=== PATIENT | male | born 1975 | race Caucasian/White ===

== ENCOUNTER 2020-02-17 01:13 | Emergency (ER) | payer OTHER ==
[~2020-02-17] VITALS: Ht 188 cm; Wt 136.1 kg
[~2020-02-17 01:13] MED LIST: ACET325 PO; ADVIL 200 MG; ALBU90OI61; ALPR1 PO; ANTIVIRAL; BENA20 PO; CEFD300 PO; CLON1; DOXA2 PO; FEBU40TA PO; FLUT.05NI; IBUPROFEN200 MG PO; LANS30EC PO; LEVSOD88 PO; LOVA40 PO; MELA3; MELO7.5 PO; Mylanta Gas Ma125 MG PO; ROSU10TA PO; SERT100 PO; SIME40L PO; SUCR1 PO; Zantac150 MG PO
[2020-02-17] MEDS ORDERED: Prednisone20 MG PO (02:40)
[2020-02-17] MEDS ORDERED: IBUP400 PO (12:02)
[2020-02-17] MEDS ORDERED: Percocet 5-3251 EACH PO (12:02)
[2020-02-17] MEDS ORDERED: CYCL10 PO (12:02)
== END 2020-02-17 03:10 | disposition home or self-care (01) ==
LOC: ER 01:13
DX: M54.41 Lumbago with sciatica, right side (principal); Z88.0 Allergy status to penicillin; Z88.2 Allergy status to sulfonamides; Z88.8 Allergy status to other drugs, medicaments and biological substances; Z79.899 Other long term (current) drug therapy
CPT/HCPCS: 96372; 99283-25; A9270; A9270-GY; J1170; J1885; J7512

== ENCOUNTER 2020-02-17 09:22 | Emergency (ER) | payer OTHER ==
[~2020-02-17] VITALS: Ht 188 cm; Wt 136.1 kg
[~2020-02-17 09:22] MED LIST changes: +Prednisone20 MG PO
[2020-02-17] MEDS ORDERED: IBUP400 PO (12:02)
[2020-02-17] MEDS ORDERED: CYCL10 PO (12:02)
[2020-02-17] MEDS ORDERED: Percocet 5-3251 EACH PO (12:02)
== END 2020-02-17 12:17 | disposition home or self-care (01) ==
LOC: ER 09:22
DX: M54.41 Lumbago with sciatica, right side (principal); I10 Essential (primary) hypertension; E03.9 Hypothyroidism, unspecified; J45.909 Unspecified asthma, uncomplicated; K21.9 Gastro-esophageal reflux disease without esophagitis; F41.9 Anxiety disorder, unspecified; F32.9 Major depressive disorder, single episode, unspecified; Z88.0 Allergy status to penicillin; Z88.2 Allergy status to sulfonamides; Z88.8 Allergy status to other drugs, medicaments and biological substances; Z79.899 Other long term (current) drug therapy
CPT/HCPCS: 72100; 96372; 99283-25; J1170; J1885